=== PATIENT | male | born 1995 | race Asian ===

== ENCOUNTER → 2017-02-01 | Outpatient (CLI) | payer BC ==
[2017-02-01 15:47] LABS: TIME 1547
[2017-02-04 11:43] LABS: RUBELLA ANTIBODY - IGG <0.90 index
== END | disposition home or self-care (01) ==
LOC: LAB 15:06
PROVIDERS: ATTEND Internal Medicine
DX: Z23 Encounter for immunization (principal)
CPT/HCPCS: 86580; 86706; 86735; 86762; 86765; 86787

== ENCOUNTER → 2017-02-07 | Outpatient (CLI) | payer BC ==
[2017-02-08 20:43] LABS: TB-NIL <0.00 IU/mL
== END | disposition home or self-care (01) ==
LOC: LAB 16:48
PROVIDERS: ATTEND Internal Medicine
DX: Z01.84 Encounter for antibody response examination (principal)
CPT/HCPCS: 86480

== ENCOUNTER → 2017-05-31 | Outpatient (CLI) | END | disposition home or self-care (01) ==